=== PATIENT | male | born 1955 | race African-American/Black ===

== ENCOUNTER 2017-03-25 06:31 | Day surgery (SDC) | payer OTHER ==
[~2017-03-25] VITALS: Ht 180.3 cm; Wt 84.0 kg
[~2017-03-25 06:31] MED LIST: ANTI-INFLAMMATORY PO; LISI-357 PO; ZYRT10TA12 PO
[2017-03-25] MEDS ORDERED: IOHEXOL 350 MG/ML 50 ML BTL (for Cath Lab) OTHER ONE (06:32)
[2017-03-25] MEDS ORDERED: ASPIRIN 81 MG CHEW TAB PO SCH (07:30)
[2017-03-25] MEDS ORDERED: NS 1000P @30 MLS/HR (KVO) IV SCH (07:30)
[2017-03-25 07:52] LABS: AUTOMATED NEUTROPHIL # 4.2 TH/MM3 (1.8-7.7); BASOPHIL % 0.4 % (0.0-2.0); EOSINOPHIL # 0.4 TH/MM3 (0-0.4); EOSINOPHIL % 5.3 % (0.0-4.0); HEMATOCRIT 43.4 % (39.0-51.0); HEMO FLAGS DIFF FINAL; LYMPH % 31.9 % (9.0-44.0); LYMPHOCYTE # 2.5 TH/MM3 (1.0-4.8); MEAN CORPUSCULAR HGB CONC 34.3 % (32.0-36.0); MONO % 9.6 % (0.0-8.0); NEUT % 52.8 % (16.0-70.0); PLATELET COUNT 212 TH/MM3 (150-450); RED BLOOD COUNT 4.38 MIL/MM3 (4.50-5.90); RED CELL DISTRIBUTION WIDTH 12.7 % (11.6-17.2); WHITE BLOOD COUNT 7.9 TH/MM3 (4.0-11.0)
[2017-03-25 08:01] LABS: APTT (PATIENT) 29.9 SEC (24.3-30.1); PROTHROMBIN TIME - PATIENT 10.4 SEC (9.8-11.6)
[2017-03-25 08:03] VITALS: BP 144/76; PULSE 78; RESP 18; TEMP 98.1; O2SAT 98
[2017-03-25 08:10] LABS: BICARBONATE 27.1 MEQ/L (21.0-32.0); POTASSIUM 3.8 MEQ/L (3.5-5.1)
[2017-03-25] MEDS ORDERED: LISI-515 PO (08:14)
[2017-03-25] MEDS ORDERED: ASPI-516 CHEW (08:14)
[2017-03-25] MEDS ORDERED: HEPARIN-NS/PF INJ 500 ML ONE (08:17)
[2017-03-25] MEDS ORDERED: MIDAZOLAM HCL 2 MG/2 ML VIAL ONE (08:35)
[2017-03-25] MEDS ORDERED: ADENOSINE STRESS TEST INJ 90 MG/30 ML VIAL ONE (08:58)
--- NOTE | 2017-03-25 09:28 | CATHPROC ---
[employer] HIS Report Study Information Study Number Admission Scheduled Start Study Start [id number] Mar 25 2017 6:31AM 03/25/2017 Mar 25 2017 8:06AM [facility] Cardiac Catheterization Admit Source Facility Department Other [facility] - Business Services Specialist Sales Physician and Clinical Staff Initial Gavin Will Payroll Benefits AdministratorElvia Borrego RN Payroll Benefits Administratorsierra Riojas RN, Wendi Eli,RT(R) (BS) Scrub Say Givens,RT(R) Procedures Performed Procedure Location (Site) Vessel Name Coronary Angiograms LCA Left Coronary Coronary Angiograms RCA Right Coronary IVUS Fem Art (right) Femoral Art L Heart Cath LV Gram-hand inj. LV LV Ventricle Wire insertion Fem Art (right) Femoral Art Equipment Time Revenue Collector Description Size Mfg Part Number Used/Scraped CATHETER, FR5 SWAN WENDI 08:18 REYES STEVEN FR 5 [id number] *[id number] Used MONITOR TRANSDUCER, TRUWAVE [id number] 08:18 REYES STEVEN * Used W/STOCKCOCK *[id number] [id number] *[id number] [id number] *[id number] *[id number] 08:18 MEDLINE IND[employer] PACK, CCL CUSTOM * Used *[id number] 08:18 [employer] PACER PEN, SKIN DUAL W/ RULER * Used *[id number] 08:18 MERIT MEDICAL SHEATH, FR5.5 PRELUDE 11CM FR 5.5 Used 038ACT# [id number] 08:51 [employer] SHEATH, FR6.5 PRELUDE 11CM FR 6.5 038ACT Used *[id number] 08:18 [employer] WIRE, 3MMJ .035 180CM 180CM Used *[id number] 08:18 NAMIC MANIFOLD, 4 PORT * Used *[id number] 08:18 NYCOMED OMNIPAQUE, 350 MG, 150ML 150ML [id number] Used [id number] 08:18 ART MEDICAL BLANKET,WARM AIR CCL * Used *[id number] 08:18 TERUMO MEDICAL SHEATH, FR4 TERUMO (10CM) FR 4 Used *[id number] CATHETER, [employer] BLACKFEET [id number] 09:07 VOLCANO Used IMAGING *[id number] 08:54 [employer]OL[employer]O PRIME WIRE, VERRATA 185CM 185CM 02764 *[id number] Used Equipment Model, Serial, Lot Number and Expiration Data Description Model Number Serial Number Lot Number Expiration Date CATHETER, [employer] BLACKFEET [id number] 01-15-2019 IMAGING PRIME WIRE, PAMELATA 185CM [id number] 01-16-2020 History: Allergies Allergy Reaction No Known Allergies History: Risk Factors Family History of Hypertension Dyslipidemia Previous CT Previous Heart Failure Premature CAD Yes Yes No No No Prior Valve Prior PCI Prior CABG Surgery No No No Cerebrovascular Peripheral Artery Chronic Lung On Dialysis Diabetes Disease Disease Disease No No No No No History: Stress Tests Stress or Imaging Studies Performed No History: Other Current Smoker Method Packs a Day Years Used Pack Years Yes Cigarettes 1 20 20 Labs Hgb (g/dl) Hct (%) WBC (l/cumm) Platelets (thousands) 11.60-17.00 35.00-51.00 4.00-11.00 150.00-450.00 14.9 43.4 7.5 212 Glucose (mg/dl) BUN (mg/dl) Creatinine (mg/dl) BUN:Creatinine (1:x) 74.00-106.00 7.00-18.00 0.50-1.30 10.00-20.00 106 24 1.2 20 Na (meq/l) K (meq/l) 136.00-145.00 3.50-5.10 136 3.8 INR (PTT:PT) 0.90-1.10 1 CPK-MB (ng/ML) 0.50-3.60 Not Drawn Medication Medication Total Dose (Bolus/Oral) Medication Total Dosage/Unit 1% XYLOCAINE 20 mL HEPARIN 6000 units VERSED 1 mg Medications (Bolus/Oral) Medication Time Given Dosage/Unit Administered By Reason VERSED 03/25/2017 8:37:38 AM 1 mg Adolfo Riojas RN 1 mg VERSED given in lab by Adolfo Riojas RN in Left Forearm via Peripheral IV. 1% XYLOCAINE 03/25/2017 8:38:08 AM 20 mL Gavin Barfield 20 mL 1% XYLOCAINE given in lab by Gavin Barfield in Right Groin via Subcutaneous. HEPARIN 03/25/2017 8:52:28 AM 6000 units Gavin Barfield 6000 units HEPARIN given in lab by Gavin Barfield in Left Forearm via Peripheral IV. Medication (Drip) Medication Time Given Dosage/Unit Concentration/Unit Diluent (ml) Solution ADENOSINE DRIP 03/25/2017 9:04:30 AM 140 mcg/kg/min 90 mg 90 NaCl .9 140 mcg/kg/min ADENOSINE DRIP given in lab by Adolfo Riojas RN in Left Forearm via Peripheral IV. Pump /Drip Flow = 706.44 ml/hr using NaCl .9 with a concentration of 90 mg in 90 ml. ADENOSINE DRIP 03/25/2017 9:07:43 AM 0 units/hr 0 STOPPED 0 units/hr ADENOSINE DRIP STOPPED given in lab by Adolfo Riojas RN. Pump/Drip Flow = 0 ml/hr using [So lution Name]. IV Solutions 03/25/2017 8:13:38 AM 0 mL (IV) 500 NaCl .9 IV Solutions given in lab by Adolfo Riojas RN in Left Forearm via Peripheral IV. Pump/Drip Flow = 30 m l/hr using NaCl .9. Initial Case Assessment Cardiovascular HR Rhythm NIBP Chest Pain 73 reg 159/85 0 Edema Present Skin color Skin None Normal Warm Dry Circulatory - Right Pulses Dorsalis Pedis Femoral 2 2 Scale (0,1,2,3,4,d) Circulatory - Left Pulses Dorsalis Pedis Femoral 2 2 Scale (0,1,2,3,4,d) Circulatory - Lower Extremities Color Lower Right Color Lower Left Normal Normal Neurological State Oriented to time-place- Alert Moves all extremities person Respiration - General Respiration Rate SpO2 (%) (B/min) 13 98 Chronological Log Time Study Chronological Log 8:04:22 Patient arrived via Bed. 8:04:25 Patient Name, D.O.B, / Armband Verified By R.N. 8:06:30 Consent signed by the physician and the patient and verified by the Business Services Specialist Sales staff. 8:06:31 Pre-op and post- op instructions given; patient acknowledges understanding of instructions . Vitals capture started with the following parameters, Patient=Adult, Interval=5 min, Initial Ulpiofhl=021 mmHg, 8:13:27 Deflation Rate=5 mmHg, Cuff placed on Left Arm 8:13:30 Verbal Stimulation=2 Physical Stimulation=2 Airway=2 Respiration=2 TOTAL=8. (0=absent, 1=martin ited, 2=present) 8:13:31 Presedation assessment performed by Business Services Specialist Sales RN. 8:13:33 Patient has been NPO for More than 6Hrs. 8:13:34 Skin Breakdown none per pt 8:13:34 Patient Warmer Placed on the Table. 8:13:37 A # 20 IV was noted in the Forearm (left). Grade = 0 8:13:38 IV Solutions given in lab by Adolfo Riojas RN in Left Forearm via Peripheral IV. Pump/Drip Fl ow = 30 ml/hr using NaCl .9. 8:13:39 History and physical on the chart or being dictated. Assessment: Initial Case, HR=73 BPM, Rhythm=reg, NGHO=155/85 mmhg, Chest Pain=0, Edema=None, Col or=Normal, Skin = Warm, Dry Right Pulses: Jose Miguel Ped=2, Femoral=2 Left Pulses: Jose Miguel Ped=2, Femoral=2 8:13:39 Lower Right Extremities: Color=Normal Lower Left Extremities: Color=Normal Neurological: State=Alert, Ox3, BROWN Respiration: Resp=13 B/min, SpO2=98 % 8:14:44 HR=74 bpm, EKOB=948/85 mmhg, SpO2=98.0 %, Resp=20 B/min, Pain=0, Mickey=10, [place]=2 8:15:26 Bilateral groins prepped with 2% chlorhexidine, and draped after a 3 minute waiting time. 8:17:37 Reference ECG taken 8:19:10 HR=77 bpm, HZYR=700/88 mmhg, SpO2=98.0 %, Resp=14 B/min, Pain=0, Mickey=10, [place]=2 8:21:30 MD paged 8:21:53 Pressure channel 1 zeroed. 8:21:56 MD responded 8:24:11 HR=72 bpm, ZAOI=271/81 mmhg, SpO2=97.0 %, Resp=10 B/min, Pain=0, Mickey=10, [place]=2 8:29:12 HR=62 bpm, EGHR=150/74 mmhg, SpO2=98.0 %, Resp=15 B/min, Pain=0, Mickey=10, [place]=2 8:34:15 HR=77 bpm, XRWV=546/77 mmhg, SpO2=97.0 %, Resp=14 B/min, Pain=0, Mickey=10, [place]=2 8:34:39 MD arrived. 8:37:38 1 mg VERSED given in lab by Adolfo Riojas RN in Left Forearm via Peripheral IV. Time Out. Correct patient, correct procedure, correct physician, power injector not loaded with contrast with surgical 8:37:54 team present. Time Out Concurred by MD and individual staff in procedure. 8:38:01 Case Start 8:38:08 20 mL 1% XYLOCAINE given in lab by Gavin Barfield in Right Groin via Subcutaneous. 8:39:12 HR=75 bpm, PBXQ=251/77 mmhg, SpO2=98.0 %, Resp=17 B/min, Pain=0, Mickey=10, [place]=2 8:39:45 Access site was Right Femoral Artery. 8:39:50 A SHEATH, FR4 TERUMO (10CM) FR 4 was advanced into the Fem Art (right) using the Percutaneou s technique. 8:41:33 Access site was Right Femoral Vein. 8:41:51 A SHEATH, FR5.5 PRELUDE 11CM FR 5.5 was advanced into the Fem Vein (right) using the Percuta neous technique. 8:42:12 A CATHETER, FR5 SWAN WENDI MONITOR FR 5 was inserted via Fem Vein (right) Recorded Pressure: PCW, HR=76, Condition=Condition 1 8:43:04 (Pulmonary Capillary Wedge) PCW 7/5/4 Recorded Pressure: MPA, HR=76, Condition=Condition 1 8:43:21 (Main Pulmonary Artery) MPA 25/8/16 8:43:34 Saturation: Site=PA (Pulmonary Artery) , O2=75.9 %, Hgb=14.9 gm/dl, Condition=Condition 1. U sed in calculation. 8:44:06 Saturation: Site=FA (Femoral Artery) , O2=94.5 %, Hgb=14.9 gm/dl, Condition=Condition 1. Use d in calculation. Recorded Pressure: RV, HR=75, Condition=Condition 1 8:44:39 (Right Ventricle) RV 28/0/2 8:44:52 HR=68 bpm, SYDF=537/76 mmhg, CyZ5=189.0 %, Resp=17 B/min, Pain=0, Mickey=10, [place]=2 Recorded Pressure: RA, HR=73, Condition=Condition 1 8:45:01 (Right Atrium) RA 5/1/0 8:45:15 Saturation: Site=RA (Right Atrium) , O2=76.6 %, Hgb=14.9 gm/dl, Condition=Condition 1. Used in calculation. 8:45:53 [place] Wendi Catheter Removed A JR 4.0 INFINITI CATHETER FR 4 was advanced over a wire. OMNIPAQUE, 350 MG, 150ML 150ML was use d for 8:45:58 injections. Recorded Pressure: LV, HR=65, Condition=Condition 1 8:46:48 (Left Ventricle) LV 143/3/5 8:46:57 The LV was manually injected with 8 cc's and visualized. OMNIPAQUE, 350 MG, 150ML 150ML used . Recorded Pressure: LV, Ao, HR=83, Condition=Condition 1 8:47:06 (Left Ventricle) LV 129/2/9, (Aorta) Ao 109/61/82 8:47:27 The RCA was injected and visualized at various angles. OMNIPAQUE, 350 MG, 150ML 150ML used. Recorded Pressure: Ao, HR=70, Condition=Condition 1 8:47:39 (Aorta) Ao 132/65/92 8:47:52 Catheter was removed A JL 4.0 INFINITI CATHETER FR 4 was advanced over a wire. OMNIPAQUE, 350 MG, 150ML 150ML was use d for 8:47:55 injections. 8:49:26 The LCA was injected and visualized at various angles. OMNIPAQUE, 350 MG, 150ML 150ML used. 8:49:42 Catheter was removed 8:49:47 HR=81 bpm, UBPC=080/93 mmhg, SpO2=99.0 %, Resp=12 B/min, Pain=0, Mickey=10, [place]=2 A SHEATH, FR6.5 PRELUDE 11CM FR 6.5 was exchanged in the Fem Art (right). This was necessary in order to 8:51:34 accomodate a larger catheter. 8:52:28 6000 units HEPARIN given in lab by Gavin Barfield in Left Forearm via Peripheral IV. 8:54:57 HR=77 bpm, QCSE=725/68 mmhg, ZfC9=732 %, Resp=18 B/min, Pain=0, Mickey=10, [place]=2 A XB 3.5 GUIDE CATHETER FR 6 was advanced over a wire. OMNIPAQUE, 350 MG, 150ML 150ML was used f or 8:56:46 injections. 8:59:11 HR=83 bpm, LSTV=209/88 mmhg, UsD3=849.0 %, Resp=15 B/min, Pain=0, Mickey=10, [place]=2 8:59:51 A PRIME WIRE, VERRATA 185CM 185CM was inserted via Fem Art (right). 9:00:58 Flow Wire was was placed in the LAD Ost. The FFR measures 0.88 percent. The IFR measures 0.9 3 Percent. 9:04:12 HR=76 bpm, CAVD=232/85 mmhg, DaF9=939.0 %, Resp=16 B/min, Pain=0, Mickey=10, [place]=2 140 mcg/kg/min ADENOSINE DRIP given in lab by Adolfo Riojas RN in Left Forearm via Peripheral IV. Pump/Drip Flow = 9:04:30 706.44 ml/hr using NaCl .9 with a concentration of 90 mg in 90 ml. 9:04:51 Activated Clotting Time Drawn 9:04:55 ACT (Normal Range 90-180) = 296 0 units/hr ADENOSINE DRIP STOPPED given in lab by Adolfo Riojas RN. Pump/Drip Flow = 0 ml/hr in g [Solution 9:07:43 Name]. 9:09:15 HR=84 bpm, MHOS=841/80 mmhg, SpO2=98.0 %, Resp=11 B/min, Pain=0, Mickey=10, [place]=2 9:09:25 Catheter was removed 9:10:54 An CATHETER, [employer] IMAGING was advanced through the lesion. Images saved on to IVUS hard drive 9:11:44 IVUS in progress using CATHETER, [employer] IMAGING 9:12:38 IVUS catheter removed 9:12:46 Catheter was removed 9:12:49 Wire removed 9:12:59 Case End 9:14:51 HR=78 bpm, ECDV=613/82 mmhg, SpO2=99.0 %, Resp=14 B/min, Pain=0, Mickey=10, [place]=2 9:16:17 Catheter(s) removed without difficulty 9:16:24 No case complications noted. 9:16:35 Bedside Report will be given. 9:16:50 A Left Heart Cath was performed. 9:17:18 In the Fem Art (right) the SHEATH, FR6.5 PRELUDE 11CM FR 6.[address] by Say Archibald, RT(R). 9:17:24 In the Fem Vein (right) the SHEATH, FR5.5 PRELUDE 11CM FR 5.[address] by Say Colvin, RT(R). 9:18:40 DOCU called. Spoke to Eleanor. Advised a-line needed. 9:19:14 Sterile dressing applied to site 9:19:15 HR=73 bpm, BGSI=974/82 mmhg, Resp=16 B/min, Pain=0, Mickey=10, [place]ad[place]=2 9:23:24 Patient moved to stretcher 9:23:47 Vitals capture stopped. End Study - Contrast Media Used In Study Contrast Total Opened (mL) Total Used (mL) Total Wasted (mL) Omnipaque 30 30 0 End Study - Maximum Contrast Load Max Contrast Load (mL) 350.4 End Study - Radiation Exposure Fluoro Time (minutes) 4.7 End Study - Patient Disposition Complications Transferred To Interventional Outcome No Business Services Specialist Sales Holding No attempt made
[2017-03-25] MEDS ORDERED: SODIUM CHLORIDE 0.9% FLUSH 10 ML FLUSH IV FLUSH PRN (09:45)
[2017-03-25] MEDS ORDERED: MISC INFORMATION XX ONE (09:45)
[2017-03-25 10:01] LABS: INDIRECT BILIRUBIN 0.4 MG/DL (0.0-0.8); TOTAL BILIRUBIN ADULT 0.5 MG/DL (0.2-1.0)
[2017-03-25 10:16] LABS: HDL CHOLESTEROL 35.9 MG/DL (40.0-60.0)
[2017-03-25] MEDS ORDERED: METOPROLOL TARTRATE 5 MG/5 ML VIAL ONE (11:05)
[2017-03-25] MEDS ORDERED: METOPROLOL TARTRATE 5 MG/5 ML VIAL IV PUSH SCH (11:15)
[2017-03-25] MEDS ORDERED: CARVEDILOL 3.125 MG TAB PO SCH (11:30)
--- NOTE | 2017-03-25 13:20 | MA ---
cc: [place] M.D. DATE 03/25/2017 PROCEDURE PERFORMED Right heart catheterization, left heart catheterization, left ventriculography, coronary angiography, FFR of the ostial LAD and IVUS of the ostial LAD. INDICATIONS 1. Unstable angina 2. [place] Cardiovascular Society class IV angina, cardiomyopathy with a gated SPECT ejection fraction of 45%, coronary artery disease and tobacco use, multiple cardiac risk factors and a moderate sized fixed defect in the posterior wall, inferior wall and a small reversible defect in the inferior wall. PROCEDURAL STATEMENT The patient was brought to the cardiac catheterization laboratory, prepped and draped in the usual sterile fashion. 10 cc's of 1% lidocaine was used to locally anesthetize the right common femoral artery. A 4-[place] sheath successfully placed in the right common femoral artery. A 5-[place] sheath placed in right common femoral vein. Right heart catheterization was performed first with the following findings. Pulmonary capillary wedge pressure 7/5-4. PA pressure 25/8-16. RV pressure 20/0-0. RA pressure 5/1-0. The cardiac output by Miguel is 6.8 liters per minute. Cardiac index by Miguel 3.3 liters/meter squared per minute. SVR is 1087 on room air. The FA sat is 94.5%. PA sat 75.9%. RA sat 76.6%. Left heart catheterization was then performed with a 4-[place]izen [place] JR-4, JL-4 catheter with following findings. LV pressure is 140/3-5. Ejection fraction is 50%. Tight coronary is dominant. FINDINGS The ostial proximal right coronary has a 20-30% stenosis. Left main coronary has no significant disease angiographically. The left circumflex vessel has no significant disease angiographically. There are three small to medium size posterolateral artery arteries coming off the mid to the distal left circ which have no significant disease angiographically. The LAD has an ostial 60% stenosis. It is a very large vessel in the proximal segment. I would estimate the vessel diameter at probably 5 mm in diameter, may be 5.5 mm in diameter. The vessel then tapers abruptly just proximal to the second diagonal artery. Then again appears to be a relative 50% stenosis compared to the proximal mid segment. The first diagonal artery is a large vessel with no significant disease angiographically. The second diagonal artery is a small vessel with no significant disease angiographically. LAD is transapical. The 6-[place] sheath was exchanged for a 4-[place] sheath. 70 units per kilo of heparin was given. ACT was 292. A 6-[place] XB 3.5 guide and a 0.014 volcano pressure wire was placed into the left circumflex vessel. The introducer was removed. The guide catheter was flushed with 20 cc of normal saline. Normalization of pressure waveforms was then performed. I then placed the FFR volcano pressure wire into the distal LAD. The IFR was 0.92. We then did a 3-minute infusion of 140 mcg/kg/per minute of adenosine for three minutes. The FFR was 0.88. In the LOPEZ caudal view, the ostial LAD clearly looked at least 60% and given the patient's symptoms of angina at rest and cardiomyopathy, I did think it was medically necessary to further study the ostial LAD to rule out any kind significant stenosis. Therefore, I did perform IVUS of the ostial LAD. The minimal luminal area was 10 mm squared. Therefore based on IFR, FFR and IVUS measurements, PCI was deferred. CONCLUSION 1. Angiographically, 60% ostial stenosis of the LAD with an IFR 0.92, FFR 0.88 and minimal luminal area of 10 mm squared by IVUS, therefore, PCI deferred. 2. Otherwise mild to moderate two-vessel coronary artery disease as detailed above. 3. Low normal LV systolic function at 50% with a cardiac index of 3.3 liters per meter squared per minute. 4. Strongly advise the patient to stop smoking. 5. The patient will continue aspirin 81 mg a day. 6. We will check fasting lipids, ALT and CK as per the NCCP guidelines. 7. Also note, the patient's LV pressure is 140/3-5. MD MURPHY Curran/DANIEL /9:21 AM /1:03 PM
[2017-03-25] MEDS ORDERED: SODIUM CHLORIDE 0.9% FLUSH 10 ML FLUSH IV FLUSH SCH (21:00)
[2017-03-26] MEDS ORDERED: ASPIRIN 81 MG CHEW TAB PO SCH (09:00)
== END 2017-03-25 17:35 | disposition home or self-care (01) ==
LOC: HDIC 06:31 → HDOC 06:31
PROVIDERS: ATTEND Internal Medicine Interventional Cardiology
DX: I25.110 Atherosclerotic heart disease of native coronary artery with unstable angina pectoris (principal); I42.9 Cardiomyopathy, unspecified; E78.00 Pure hypercholesterolemia, unspecified; R07.9 Chest pain, unspecified; F17.200 Nicotine dependence, unspecified, uncomplicated
CPT/HCPCS: 80048; 80061; 80076; 82550; 82810; 85002; 85025; 85610; 85730; 92978; 93460; 93571; 99152; 99153; C1753; C1769; C1887; C1893; J0153; J1644; J2250; Q9967